=== PATIENT | male | born 1945 | race Caucasian/White ===

== ENCOUNTER 2020-03-12 18:05 | Inpatient (IN) | payer OTHER, MEDICAID ==
[~2020-03-12] VITALS: Ht 162.6 cm; Wt 68.4 kg
[2020-03-12 18:11] VITALS: BP 146/80
[2020-03-12 19:17] LABS: ABSOLUTE NEUTROPHILS 3.5 thou/uL (1.4-8.2); BASOPHILS 0.3 % (0.0-2.0); EOSINOPHILS 0.6 % (0.0-3.0); HEMATOCRIT 34.9 % (42.0-52.0); HEMOGLOBIN 12.1 gm/dL (14.0-18.0); LYMPHOCYTES 32.1 % (24.0-44.0); MCH 32.4 pg (26.0-34.0); MCHC 34.6 g/dL (28.0-37.0); MCV 93.7 fL (80.0-100.0); MONOCYTES 7.7 % (1.0-8.0); PLATELET COUNT 268 thou/uL (150-400); POLYS 59.3 % (36.0-66.0); RBC 3.72 mil/uL (4.50-6.00); WBC 5.9 thou/uL (4.0-11.0)
[2020-03-12 19:18] LABS: ANION GAP 11 mmol/L (7-16); BUN 29 mg/dL (7-18); CALCIUM 9.2 mg/dL (8.5-10.1); CHLORIDE 99 mmol/L (98-107); CO2 25 mmol/L (21-32); CREATININE 1.1 mg/dL (0.7-1.3); GLUCOSE 146 mg/dL (74-106); SODIUM 135 mmol/L (136-145)
[2020-03-12 19:24] LABS: ALBUMIN 3.4 g/dL (3.4-5.0); DIRECT BILIRUBIN < 0.1 mg/dL (<0.1-0.2); SGOT 9 U/L (15-37); SGPT 14 U/L (30-65); TOTAL BILIRUBIN 0.8 mg/dL (0.2-1.0)
[2020-03-12 19:58] LABS: URINE BILIRUBIN NEGATIVE (Negative); URINE BLOOD NEGATIVE (Negative); URINE CLARITY CLEAR; URINE COLOR YELLOW; URINE GLUCOSE-RANDOM* 2+ (Negative); URINE KETONES NEGATIVE (Negative); URINE LEUKOCYTES-REFLEX NEGATIVE (Negative); URINE NITRITE-REFLEX NEGATIVE (Negative); URINE PROTEIN (DIPSTICK) NEGATIVE (Negative); URINE SPECIFIC GRAVITY >= 1.030 (1.005-1.035); URINE UROBILINOGEN 0.2 E.U./dl (0.2-1.0)
[2020-03-12 20:06] LABS: AMP/METHAMP Negative (Negative); BARBITURATES Negative (Negative); BENZODIAZEPINES Negative (Negative); COCAINE Negative (Negative); METHADONE Negative (Negative); OPIATES Negative (Negative); PCP Negative (Negative)
--- NOTE | 2020-03-12 21:29 | NUR ---
GROUNDSKEEPER PORTER CALLED IN-PATIENT UNIT TO GIVE PT REPORT, CALL UNANSWERED.
[2020-03-12 21:30] VITALS: BP 146/80
--- NOTE | 2020-03-12 21:41 | NUR ---
INPATIENT UNIT CALLED AGAIN TO GIVE PT REPORT. SHIP PILOT MADE AWARE THAT RECEIVING NURSE WILL RETURN CALL SHE'S CURRENTLY IN THE MIDDLE OF PT CARE.
[2020-03-12 22:32] VITALS: BP 184/106
[2020-03-13] MEDS ORDERED: CARBIDOPA-LEVO1 EAC9 PO (00:09)
[2020-03-13] MEDS ORDERED: ARICEPT10 M1 PO (00:10)
[2020-03-13] MEDS ORDERED: LANTUS SUBQ (00:11)
[2020-03-13] MEDS ORDERED: LATANOPROST 0.2.5 ML OPHTHALMIC (00:12)
[2020-03-13] MEDS ORDERED: COZAAR100 MG PO (00:14)
[2020-03-13] MEDS ORDERED: MAG-OXIDE400 MG PO (00:16)
[2020-03-13] MEDS ORDERED: REVIA 50 MG TAB50 M1 PO (00:17)
[2020-03-13] MEDS ORDERED: NITRO-DUR 10 C0.2 M1 TRANSDERM (00:20)
[2020-03-13] MEDS ORDERED: VITAMIN D31250 MCG PO (00:22)
[2020-03-13] MEDS ORDERED: ELIQUIS5 MG PO (00:23)
[2020-03-13] MEDS ORDERED: SEROQUEL 100 M100 M1 PO (00:25)
[2020-03-13] MEDS ORDERED: METFORMIN HCL500 M3 PO (00:26)
[2020-03-13] MEDS ORDERED: SENNA PLUS TAB1 EACH PO (00:27)
[2020-03-13 04:46] VITALS: BP 140/74
--- NOTE | 2020-03-13 07:54 | NUR ---
PATIENT CAME TO [facility] FROM ED AT 2230 LAST PM. HE IS A/0 X 1-2 AND FORGETFUL. HE IS COMING FROM [facility] AFTER GRABBING STAFF MEMBERS PRIVATE PARTS AND BEING AGGRESSIVE. PATIENT HAS BEEN CALM AND COOPERATIVE SINCE HE CAME TO OUR UNIT. HE WAS GIVEN A SNACK. HE AMBULATES WITH A WALKER AND IS STABLE ON HIS FEET. HE TAKES HIS MEDS WHOLE. PT HAD TRAZADONE 50MG PO AT 0106 FOR SLEEP. PHYSICAL ASSESSMENT WNL. VSS. PATIENT DID HAVE BM ON 03/12/20. PATIENT DENIES PAIN. HE DENIES SI/HI/AVH. PATIENT SLEPT THRU NIGHT AFTER TRAZADONE GIVEN. HE HAS UPPER DENTURES ONLY. INVENTORY DONE. ORDERS RECEIVED AND CARRIED OUT. DIET IS CARB CONTROL 1800 DIET. ROUTINE ROUNDS FOR ASSESSMENT OF STATUS AND SAFETY.
--- NOTE | 2020-03-13 08:07 | EKG ---
[facility] [place] [address] ELECTROCARDIOGRAM REPORT Name: RAMYA DICKERSON Room #: 52-A ADM IN M.R.#: [id number] Admission: 03/12/20 Attend Phys: Edwin Mckeon DO Discharge: Date of : 43 Report #: [id number] THIS REPORT FOR: cc: Antony Casey MD, Bruce E. MD Lundgren,Jair Flores MD [facility] ~ THIS REPORT FOR: //name// [facility] ED Test Date: 2020-03-12 Test Time: 20:04:50 Pat Name: RAMYA DICKERSON Department: Room: [facility] Gender: M Hvac Service Technician: no : 1945 Requested By: Jaky Garza Order Number: [id number] MD: Jair Chaidez Measurements Intervals [place] Rate: 72 P: 34 OH: 151 QRS: 9 QRSD: 115 T: 34 QT: 368 QTc: 403 Interpretive Statements Sinus rhythm Incomplete right bundle branch block No previous ECG available for comparison Electronically Signed On 03-13-2020 8:07:09 CDT by Jair Chaidez [email or web address] <ELECTRONICALLY SIGNED> By: Jair Chaidez MD, FAC 03/13/20 0807 03 03 Jair Chaidez MD, [facility] /EPI
[2020-03-13 09:51] LABS: TSH 1.051 uIU/mL (0.358-3.740)
[2020-03-13 11:35] VITALS: BP 116/72
--- NOTE | 2020-03-13 13:55 | NUR ---
Lying supine in bed without s/o distress. Alert and orientated X2. Denies SI/HI. Interactive with staff. Stays in room when not at meals. Ambulates with walker with slow, steady gait but does require assistance with standing. States L shoulder is painful when moved with decreased ROM. States he fell about a week ago. Breath sounds clear. Reg HR auscultated. Color pink with brisk capillary refill and palpable peripheral pulses. Incontinent of large amt of yellow urine. Active bowel sounds over soft, rounded abdomen. Smear of stool around rectum. States he had BM yesterday. CT called requesting clarification of CT of upper extremity. Stated it was shoulder and called questioned it saying, "It's not the elbow?" Referred to MANAGER OF BUSINESS twice for clarification. CT called a third time with same question. Again referred to MANAGER OF BUSINESS for clarification.
--- NOTE | 2020-03-13 15:41 | NUR ---
JAYLEN spoke with [facility] Callie [phone] and she reports that her dad has lived at [facility] for 1.5 years. She states that this pt was an orphan and a . Pt is expected to d/c back to [facility] once stable. Jaylen will communicate with [facility] and send regular updates. JAYLEN completed the intake assessment and TP.
[2020-03-13 19:40] VITALS: BP 131/51
--- NOTE | 2020-03-14 01:09 | NUR ---
Care assumed of patient at 1915: Patient sleeping quietly in bed at start of shift. Patient aroused by touch. Patient alert and oriented to person only. Patient drowsy, confused, forgetful. Patient states that he was tired and wanted to sleep. Patient denied pain or discomfort. Denied SI/HI/AH/VH. No delusional or paranoia behaviors observed. No aggression or sexually inappropriate behaviors observed. Patient was resistant to taking HS medications. States "you guys just keep shoving pills in me". Patient did take medication after education provided. Patient declined HS snack. Patient has been withdrawn to room this shift. Does appear lethargic with difficulty staying awake. Patient resting quietly most of the shift. Fall precautions in place.
--- NOTE | 2020-03-14 08:11 | NUR ---
PT REFUSING MEDS. PT STATED HE DOSN'T TAKE ANY MEDS. PT HAS WALKER AND USES IT TO AMBULATE. PT DENIES ANY PAIN. PT SAID HE WILL USE THE WALKER EVEN IF HE THINKS HE DOESN'T NEED IT. PT LUNGS CLEAR AND REG. HEART BEAT.
[2020-03-14 08:30] VITALS: BP 159/89
[2020-03-14 09:21] VITALS: BP 159/89
--- NOTE | 2020-03-14 12:36 | NUR ---
PT DID TAKE MAG. MED AT THIS TIME. PT WAS OVERWHELMED AT AM WITH MEDS ALL AT ONCE.
--- NOTE | 2020-03-14 14:40 | NUR ---
ELVA faxed updates to [facility]
--- NOTE | 2020-03-14 15:48 | NUR ---
PT REFUSING MAG AND ALSO SINEMET. PT STATED HE DOESN'T TAKE MEDS. THIS SPACE CONTROL AGENT ASKED IF HE WILL TAKE HIS BLOOD SUGAR MEDICATION, PT SAID YES.
--- NOTE | 2020-03-14 17:30 | NUR ---
PT BACK TO BED AFTER DINNER. PT DIDN'T TAKE METFORMIN WITH DINNER.
[2020-03-14 20:19] VITALS: BP 174/136
--- NOTE | 2020-03-15 03:10 | NUR ---
Care assumed of patient at 1915: Patient resting in bed at start of shift. Easily arousable. Alert and oriented to person. Patient calm, pleasant and cooperative. Interacting well with staff. Patient observed walking the hallways a couple different times early in the evening with walker. Gait steady, good balance. Patient came to the dayroom and sat for a small period of time and watched TV. Patient more alert and less isolative as in previous night. Patient presents with flat affect. Patient did make a couple jokes and displayed an honery personna. Patient compliant with taking HS medication whole. Patient did report that he was awake all night the previous night, however, this nurse was here and patient slept most of that shift and was drowsy. Disoriented to location, time and situation. Patient allowed nurse to check blood sugar and administer insulin. Patient declined HS snack. No agitation or sexually inappropriate behaviors observed. Patient up to use the bathroom during the night. Patient has been continent of bladder this shift. Denies depression and anxiety. Denies SI/HI/AH/VH. Denies pain and discomfort. Patient resting quietly in bed at this time.
--- NOTE | 2020-03-15 12:23 | NUR ---
Alert and orientated to person, place and situation but not to time. Frequently asks if he will stay over night again, is interested in being discharged. Also wanting to call his children. Denies SI/HI. Breath sounds clear. Reg HR auscultated. Color pink with brisk capillary refill and palpable peripheral pulses. Active bowel sounds over soft, rounded abdomen. Able to ambulate with walker, slow, steady gait.
[2020-03-15 16:22] VITALS: BP 152/90
[2020-03-15 19:18] VITALS: BP 113/74
[2020-03-15 19:25] VITALS: BP 95/56
[2020-03-15 20:15] VITALS: BP 95/56
--- NOTE | 2020-03-16 02:40 | NUR ---
PATIENT WAS UP IN DAYROOM AT BEGINNING OF THE SHIFT. HE DID HAVE AN HS SNACK. HE IS A/0 X 1-2 AND VERY FORGETFUL. PATIENT TOOK HIS HS MED WHOLE WITH WATER. HIS GLUCOSE WAS 114. HE HAD HIS LANTUS 14 U AT HS. COVID-19 NASAL SWAB CULTURE WAS COLLECTED AND TAKEN TO THE LAB. PATIENT HAS BEEN IRRITABLE AT TIMES WHEN AWOKEN AT NIGHT. HE DENIES PAIN. BED IN LOW POSITION AND BED ALARM IS ON. CONTINUING TO DO ROUTINE ROUNDS TO ASSESS FOR SAFETY AND STATUS OF PATIENT. PATIENT IS LOOKING FORWARD TO GOING HOME SOON. HE DENIES SI/HI/AVH.
[2020-03-16 07:35] VITALS: BP 148/79
[2020-03-16 08:10] VITALS: BP 148/79
--- NOTE | 2020-03-16 09:12 | NUR ---
PT NEEDED AWOKE FOR BREAKFAST. PT WANTED TO SLEEP IN. PT STATED HE THINKS THAT HIS GRANDSON WAS COMING HOME, ASKED WHAT HIS AGE IS, PT STATED HE IS 17. PT UP WITH WALKER STAND-BY ASSIST. PT DID TAKE AM MEDS WHOLE WITH WATER. PT LUNGS CLEAR. PT DENIES ANY PAIN. PT HAS YELLOW SHIRT ON AND YELLOW SOCKS.
--- NOTE | 2020-03-16 11:08 | NUR ---
Report received from lab; COVID test is negative. Dr. Stevenson was informed of the test results.
--- NOTE | 2020-03-16 12:00 | NUR ---
PT SITTING IN DINING ROOM EATING LUNCH. PT STATED HE WOULD TAKE MAGNESIUM MED AFTER HE EATS.
--- NOTE | 2020-03-16 12:23 | NUR ---
PT DIDN'T TAKE MAG. PILL. PT GOT UP TO GO TO HIS ROOM. PT ENDED UP ON HIS KNEES IN THE FIGUEROA, PT DIDN'T FALL. PT PLACED IN RECLINER AND WHEELED TO DINING ROOM. PT RESTING WITH EYES CLOSED.
--- NOTE | 2020-03-16 13:58 | NUR ---
Sw faxed updates to [facility] and included the neg covid test results. ELVA then called [facility] to confirm that pt was likely going to be discharging on Thursday.
--- NOTE | 2020-03-16 14:05 | NUR ---
Amada at [facility] reported that since they have COVID in their NH they would have to discuss the d/c as a team and that this worker would have to call back on Thursday and maybe even Thursday for a milk pickup driver time. They are aware that this pt will be returning on Thursday and if no time was decided on Thursday this worker would set the time and transporation for Thursday at 11 AM.
--- NOTE | 2020-03-16 18:18 | NUR ---
PT DIDN'T WANT TO TALK SUPPER MEDS, PT ALREADY IN BED AFTER EATING. PT STATED HE THINKS HE SHOULD SEE THE DR. FIRST BEFORE TAKING MEDS. PT STATED HE HAD 11 PILLS THE OTHER DAY AND REFUSED. PT REMEMBER THIS FROM 2 DAYS AGO. PT STATED HE WILL TAKE HIS MEDS AT MIDNIGHT. PT JUST WANTED TO REST. ASSISTED PT TO BED AND COVERED HIM UP. PT NEEDS REMINDING ABOUT USING HIS WALKER.
[2020-03-16 20:00] VITALS: BP 124/67
[2020-03-16 22:00] VITALS: BP 124/67
--- NOTE | 2020-03-17 01:24 | NUR ---
Assumed care of patient this pm shift. Patient in good spirits. Patient takes medications whole and is medication adherent. Patient is alert and oriented to self and situation. Patient denies hi/si. Patient denies pain. Patients assessment shows no acute distress. Patient ambulates with walker. Patient is a falls risk. Patient is achs on glucose testing. Patient wearing hospital attire and yellow shirt. We will continue to monitor per hospital protocol.
[2020-03-17 07:51] VITALS: BP 133/75
--- NOTE | 2020-03-17 11:02 | NUR ---
PATIENT PLEASANT AND CALM THIS MORNING WHEN CARE ASSUMED AT 0700. PATIENT ATE 75 PER CENT OF BREAKFAST. BLOOD SUGAR WAS 98 WHEN TAKEN AT 0730. PATIENT RELUCTANT TO TAKE MEDICATIONS WHEN APPROACHED. WAS UPSET WITH AMOUNT OF PILLS HE HAD TO TAKE. LATER STAFF WAS ABLE TO ENCOURAGE COMPLIANCE - PATIENT HAD LABS IN AM TAKEN AND X-RAYS THAT WAS ORDERED. RETIRED BACK TO ROOM AFTER BREAKFAST.
[2020-03-17 11:36] VITALS: BP 133/75
[2020-03-17 11:39] LABS: ABSOLUTE NEUTROPHILS 3.2 thou/uL (1.4-8.2); BASOPHILS 0.6 % (0.0-2.0); EOSINOPHILS 0.5 % (0.0-3.0); HEMATOCRIT 32.9 % (42.0-52.0); HEMOGLOBIN 11.6 gm/dL (14.0-18.0); LYMPHOCYTES 32.3 % (24.0-44.0); MCH 33.3 pg (26.0-34.0); MCHC 35.5 g/dL (28.0-37.0); MONOCYTES 6.5 % (1.0-8.0); PLATELET COUNT 239 thou/uL (150-400); POLYS 60.1 % (36.0-66.0); RBC 3.49 mil/uL (4.50-6.00); WBC 5.3 thou/uL (4.0-11.0)
[2020-03-17 11:59] LABS: CREATININE 1.1 mg/dL (0.7-1.3); MAGNESIUM 1.7 mg/dL (1.8-2.4); POTASSIUM 4.3 mmol/L (3.5-5.1); TOTAL BILIRUBIN 0.7 mg/dL (0.2-1.0); TOTAL PROTEIN 6.4 g/dL (6.4-8.2)
--- NOTE | 2020-03-17 12:11 | NUR ---
PATIENT FEEL AT 1145 IN HIS ROOM. STAFF MEMBER HAD BEEN IN ROOM AND ASSISTED UP TO ATTEND LUNCH. PATIENT HAD GONE TO [facility] AND WAS AMBULTING OUT WITH WALKER AT TIME OF INCIDENCE. UNWITNESSED FALL - HEARD THUMP AND YELLING AND STAFF FOUND PATIENT LYING ON FLOOR INFRONT OF BED CLOSEST TO BATHROOM. PATIENT STATED DISCOMFORT BEHIND RIGHT EAR. NO REDDNESS OR ABRASION OR LUMPS. SPOKE TO DR. LAZCANO AND ADVISED AT 1220 - CT ORDERED AT THIS TIME. PATIENT FAMILY CONTACTED OF FALL AND ADVISED PATIENT OK AND EATING LUNCH AT THIS TIME. PATIENT CURRENTLY EATING LUNCH -
--- NOTE | 2020-03-18 05:10 | NUR ---
03-17-20 CARE TRANSFERED 1914 PT SUPINE WITH RESTING WIHT EYES CLOSED. 1950 PT AAOX2, SKIN W/D, OBSERVED PT TURNING HEAD BACK AND FORTH GOOD ROM, PT REPORTED HE FELL AND CURRENTLY HE HAS NOT PAIN, JUST FEELS A LITTLE STIFF WHEN TURN MY HEAD LEFT. PT VSS, RR EVEN AND NON LABORED ON RA PERRLA, EQUAL INSURANCE ACTUARY. PT REMAINED CALM AND COOPERATIVE THROUGHOUT NURSING ASSESSMENT. PT DENIES ANY NEW CONCERNS AT THIS TIME. ZERO ACUTE EMOTIONAL OR MEDICAL DISTRESS NOTED.
[2020-03-18 05:36] LABS: GLYCOHEMOGLOBIN (HGB A1C) 6.1 % (4.8-5.6)
[2020-03-18 08:59] VITALS: BP 123/71
[2020-03-18 11:26] VITALS: BP 123/71
--- NOTE | 2020-03-18 12:23 | NUR ---
PATIENT CARE ASSUMED AT 0700 - REMAINS UNSTEADY ON FEET WITH WALKER. AFFECT BRIGHTER AND MOOD COOPERATIVE. MAKES NEEDS KNOWN. NO AGITATION NOTED. MED COMPLIANT. WAS ALITTLE RELUCTANT WITH B12 INJECTION BUT COMPLIANT WITH ENCOURAGEMENT. PATIENT TOOK MORNING MEDICATIONS WITHOUT OBJECTION OR INCIDENCE. COMPLAINED OF LEFT SHOULD DISCOMFORT BUT REFUSED TYLENOL WHEN OFFERED.
--- NOTE | 2020-03-18 14:52 | NUR ---
Discussed pt's need for COVID testing prior to discharge with nursing staff and Dr. Stevenson.
[2020-03-18 20:07] VITALS: BP 116/70
[2020-03-18 22:00] VITALS: BP 116/70
--- NOTE | 2020-03-19 00:48 | NUR ---
Assumed care of patient this pm shift. Patient is in good spirits. Patient is alert and oriented to self and place. Patient denies pain. Patient denies hi/si. Patient takes medications whole with thin fluids. Patient is medication adherent this evening. Patient ambulates via wheelchair. Patient is assist x1-2. Patients assessment shows no signs of acute distress. Patient wears a brief and needs assistance toileting. Patient is a falls risk and has on a yellow shirt and yellow socks. We will continue to monitor per hospital policy.
[2020-03-19 05:59] LABS: ABSOLUTE NEUTROPHILS 2.7 thou/uL (1.4-8.2); BASOPHILS 0.3 % (0.0-2.0); EOSINOPHILS 1.5 % (0.0-3.0); HEMATOCRIT 31.7 % (42.0-52.0); HEMOGLOBIN 11.2 gm/dL (14.0-18.0); LYMPHOCYTES 41.2 % (24.0-44.0); MCH 33.1 pg (26.0-34.0); MCHC 35.3 g/dL (28.0-37.0); MCV 93.6 fL (80.0-100.0); MONOCYTES 8.5 % (1.0-8.0); PLATELET COUNT 238 thou/uL (150-400); POLYS 48.5 % (36.0-66.0); RBC 3.39 mil/uL (4.50-6.00); RDW 13.1 % (10.5-14.5); WBC 5.7 thou/uL (4.0-11.0)
[2020-03-19 06:26] LABS: CALCIUM 8.8 mg/dL (8.5-10.1); CREATININE 1.1 mg/dL (0.7-1.3); MAGNESIUM 1.9 mg/dL (1.8-2.4); PHOSPHORUS 3.9 mg/dL (2.5-4.9); POTASSIUM 4.1 mmol/L (3.5-5.1); TOTAL BILIRUBIN 0.7 mg/dL (0.2-1.0); TOTAL PROTEIN 6.3 g/dL (6.4-8.2)
[2020-03-19 07:45] VITALS: BP 155/50
[2020-03-19 08:20] VITALS: BP 155/58
--- NOTE | 2020-03-19 10:00 | NUR ---
PT FINISHED BREAKFAST. PT DIDN'T WANT TO TAKE ALL 15 PILLS. 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 PT VERY PLEASANT, JUST DON'T LIKE TO TAKE ALOT OF MEDS. PT LUNGS CLEAR. PT IN W/C THIS AM. PT DOESN'T ASK FOR HELP. PT ASSIST X1 PERSON WITH ADL'S. PT DENIES ANY PAIN.
--- NOTE | 2020-03-19 11:16 | NUR ---
ELVA called [facility] and left a VM with Amada reminding her that d/c was expected on 03/20. ELVA also spoke with his dght Callie about the d/c plans and she was satisfied with this outcome.
--- NOTE | 2020-03-19 15:00 | NUR ---
ASSISTED PT TO BATHROOM. PT WHEELING AROUND SELF IN W/C. PT ASKED FOR BATHROOM. PT HAS BM AND WAS SLIGHT INCON. OF URINE. NO SEXUAL INAPPROPRIATNESS NOTED.
[2020-03-19 15:44] VITALS: BP 138/72
--- NOTE | 2020-03-19 15:44 | NUR ---
PT SITTING BY NURSES DESK IN W/C. PT GETTING UP AND WENT TO SIT BACK DOWN AND W/C MOVED, AND FELL ON THE FLOOR. PT STATED HE WAS MARTY AND HE HAS PAIN TO MUSCLES. ASIAN STUDIES PROGRAM CHAIR WAS NEXT TO HIM AND HELPED HIM UP ALONG WITH DR. RODRIGUEZ.
[2020-03-19 17:00] VITALS: BP 115/71
[2020-03-19] MEDS ORDERED: TRAZODONE HCL50 MG PO (17:48)
[2020-03-19] MEDS ORDERED: FLOMAX0.4 MG PO (17:48)
[2020-03-19] MEDS ORDERED: IMDUR 30 MG TAB30 M1 PO (17:48)
[2020-03-19] MEDS ORDERED: PEPCID20 MG PO (17:49)
[2020-03-19] MEDS ORDERED: SEROQUEL 100 M100 M1 PO (17:50)
[2020-03-19 20:15] VITALS: BP 131/63
[2020-03-19 22:00] VITALS: BP 131/63
--- NOTE | 2020-03-20 01:34 | NUR ---
Assumed care of patient this pm shift. Patient in good spirits. Patient oriented to self only this evening. Patient states that he did not know he was in [facility]. Patient denies pain. Patient denies hi/si. Patient ambulates with walker and is a falls risk. Patient wearing yellow shirt and yellow slippers. Patient is continent of bowel and bladder and just needs staff present for minimal assistance. Patients assessment shows no signs of acute distress. Patient is medication adherent and takes medications whole with thin fluids. Patient does not show any signs of negative behaviors. We will continue to monitor per hospital policy.
[2020-03-20 08:20] VITALS: BP 129/73
--- NOTE | 2020-03-20 08:48 | NUR ---
PT ATE BREAKFAST AND WENT BACK TO BED. PT IN ROOM. PT STATED TO THIS GROOMING SALON MANAGER TO GET OUT OF HIS ROOM, JOKING. PT TOOK AM MEDS. PT STATED HE HASN'T BEEN ON THIS MANY MEDS. PT NOT HAPPY ABOUT GETTING VIT B12 IM. PT DENIES ANY PAIN. PT IS NOTTAWASEPPI POTAWATOMI. STATED TO PATIENT HE IS GOING HOME TODAY, PT STATED NO ONE TOLD ME. PT SAID HE DIDN'T HAVE A HOME TO GO TOO. PT STATED HE WILL PROB. BE GOING BACK TO WHERE HE CAME FROM. 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 PT TOLD NURSE THIS DUE TO ASKING IF NURSE WAS .
--- NOTE | 2020-03-20 09:19 | NUR ---
ELVA faxed the d/c orders and summary to [facility]. Made packet and left it on the chart. Reporteed this to nursing. Transporation was set up for 1 pm.
[2020-03-20 09:29] VITALS: BP 129/73
--- NOTE | 2020-03-20 13:40 | NUR ---
PATIENT TRANSPORTED TO FACILITY AT 1:20 PM - ESCORTED DOWN BY STAFF. ALL BELONGINGS ACCOUNTED FOR AND TAKEN ALONG WITH PATIENT'S OWN WALKER. PATIENT ALERT AND APPRECIATIVE OF CARE GIVEN AND EXPRESSED THIS TO STAFF. CALM - AGREEABLE. ALL DOCUMENTATION PROVIDED WITH PATIENT WHEN DEPARTING. PATIENT LEFT WITH [facility] -
--- NOTE | 2020-03-20 14:05 | NUR ---
PT LEFT AND WENT TO [facility] VIA W/C VAN. PT VERY APPRECIATED OF CARE HE RECIEVED HERE. PT LEFT WITH PERSONAL WALKER. CALLING REPORT AND PHONE IS RINGING AFTER TRANSFER FROM SOFTWARE SUPPORT SPECIALIST CALL, NO ONE IS PICKING UP THE PHONE AT THIS TIME.
== END 2020-03-20 13:30 | DRG 57 ==
LOC: EDBD 18:05 → ER 18:05 → EROBS 20:26 → SBH 20:26
PROVIDERS: Emergency Medicine; Internal Medicine; ADMIT Psychiatry & Neurology Psychiatry; ATTEND Psychiatry & Neurology Psychiatry
DX: G30.9 Alzheimer's disease, unspecified (principal); F02.81 Dementia in other diseases classified elsewhere, unspecified severity, with behavioral disturbance; N18.3 Chronic kidney disease, stage 3 (moderate); I69.351 Hemiplegia and hemiparesis following cerebral infarction affecting right dominant side; E78.5 Hyperlipidemia, unspecified; I12.9 Hypertensive chronic kidney disease with stage 1 through stage 4 chronic kidney disease, or unspecified chronic kidney disease; F32.9 Major depressive disorder, single episode, unspecified; E11.22 Type 2 diabetes mellitus with diabetic chronic kidney disease; Z66 Do not resuscitate; F41.9 Anxiety disorder, unspecified; G47.00 Insomnia, unspecified; F20.9 Schizophrenia, unspecified; M19.90 Unspecified osteoarthritis, unspecified site; N40.0 Benign prostatic hyperplasia without lower urinary tract symptoms; M25.512 Pain in left shoulder; E53.8 Deficiency of other specified B group vitamins; Z79.899 Other long term (current) drug therapy; Z79.01 Long term (current) use of anticoagulants; Z03.818 Encounter for observation for suspected exposure to other biological agents ruled out; R13.10 Dysphagia, unspecified
CPT/HCPCS: 10880